=== PATIENT | female | born 1930 | race Caucasian/White ===

== ENCOUNTER 2017-03-01 13:54 | Emergency (ER) | payer OTHER, BC ==
[~2017-03-01] VITALS: Ht 154.9 cm; Wt 59.6 kg
[~2017-03-01 13:54] MED LIST: APRESOLINE25 MG PO; ASPIR-LOW81 MG PO; ATENOLOL100 M1 PO; Atarax PO; CORTISPORIN EAR10 ML TP; FUROSEMIDE20 MG PO; LEVOTHROID88 MCG PO; LEVOTHYROXINE100 MCG PO; LEVOTHYROXINE88 MCG PO; LORAZEPAM0.5 MG PO; MAXZIDE 37.5 M1 EACH PO; NORVASC10 MG PO; PRAVACHOL40 MG PO; SIMVASTATIN40 MG PO; SUTENT25 MG PO; predniSONE PO
[2017-03-01 15:37] VITALS: BP 188/99
== END 2017-03-01 15:37 | disposition home or self-care (01) ==
LOC: EME 13:54
DX: R00.2 Palpitations (principal); I10 Essential (primary) hypertension; E78.5 Hyperlipidemia, unspecified; F41.9 Anxiety disorder, unspecified; Z95.1 Presence of aortocoronary bypass graft; Z85.528 Personal history of other malignant neoplasm of kidney; Z90.5 Acquired absence of kidney
CPT/HCPCS: 93005; 99281; 99283

== ENCOUNTER → 2017-06-01 | Outpatient (CLI) | payer OTHER, BC ==
[~2017-06-01] MED LIST changes: +CLONIDINE HCL0.1 MG PO; +LABETALOL HCL200 MG PO
== END | disposition home or self-care (01) ==
LOC: AMB 12:24
DX: L85.8 Other specified epidermal thickening (principal)
CPT/HCPCS: 88305

== ENCOUNTER 2017-06-19 14:14 | Observation (INO) | payer OTHER, BC ==
[~2017-06-19] VITALS: Ht 154.9 cm; Wt 48.6 kg
[2017-06-19 15:39] LABS: HEMOGLOBIN 12.5 G/DL (11.9-15.5); MCH 31.3 PG (29.0-34.0); MCHC 33.8 G/DL (30.0-36.0); MCV 92.7 FL (83-99); PLATELET COUNT 236 K/uL (156-360); RBC DIS.WIDTH-CV 13.9 % (11.8-14.6); RBC DIS.WIDTH-SD 47.1 % (39-53); RED BLOOD COUNT 3.99 M/uL (3.80-5.20); WHITE BLOOD COUNT 14.1 K/uL (4.1-10.2)
[2017-06-19 15:47] LABS: ALBUMIN 3.8 g/dL (3.2-4.8); CHLORIDE 105 mEq/L (99-109); POTASSIUM 4.8 mEq/L (3.7-5.4); SODIUM 138 mEq/L (136-147)
[2017-06-19 15:50] LABS: GLUCOSE 106 mg/dL (70-99)
[2017-06-19 15:52] LABS: TOTAL BILIRUBIN 0.3 mg/dL (0.0-1.0)
[2017-06-19 15:53] LABS: ALKALINE PHOSPHATASE 78 IU/L (3-129); CREATININE 1.6 mg/dL (0.6-1.3); GFR ESTIMATE (CALCULATED) 32 mL/min/
[2017-06-19 15:54] LABS: UREA NITROGEN (BUN) 36 mg/dL (9-23)
[2017-06-19 15:55] LABS: AST (GOT) 22 IU/L (2-34)
[2017-06-19 15:56] LABS: ALT (GPT) 17 IU/L (3-49)
[2017-06-19] MEDS ORDERED: FUROSEMIDE20 MG PO (19:55)
[2017-06-19] MEDS ORDERED: VITAMIN D2000 UNIT PO (19:56)
[2017-06-19] MEDS ORDERED: LEVO-T75 MCG PO (19:57)
[2017-06-19 22:02] LABS: TROP-I INTERPRETATION NEGATIVE; TROPONIN-I 0.04 ng/mL (0.0-0.30)
[2017-06-19 22:45] VITALS: BP 207/84
[2017-06-20 06:07] LABS: HEMOGLOBIN 11.7 G/DL (11.9-15.5); MCH 30.9 PG (29.0-34.0); MCHC 33.4 G/DL (30.0-36.0); MCV 92.3 FL (83-99); PLATELET COUNT 239 K/uL (156-360); RBC DIS.WIDTH-CV 13.8 % (11.8-14.6); RBC DIS.WIDTH-SD 46.9 % (39-53); RED BLOOD COUNT 3.79 M/uL (3.80-5.20); WHITE BLOOD COUNT 11.1 K/uL (4.1-10.2)
[2017-06-20 06:27] LABS: CHLORIDE 106 MEQ/L (99-109); CREATININE 1.5 MG/DL (0.6-1.3); GFR ESTIMATE (CALCULATED) 35 mL/min/; GLUCOSE 107 mg/dL (70-99); POTASSIUM 4.5 MEQ/L (3.7-5.4); SODIUM 140 MEQ/L (136-147); UREA NITROGEN (BUN) 32 mg/dL (9-23)
[2017-06-20 08:14] VITALS: BP 204/83
[2017-06-20 08:34] LABS: FOLIC ACID (FOLATE) > 22.0 NG/ML (5.0-22.0)
[2017-06-20 08:40] LABS: THYROTROPIN (TSH) 2.4 MIU/L (0.4-5.5)
[2017-06-20 11:00] VITALS: BP 178/73
[2017-06-20] MEDS ORDERED: LIDODERM 5% P1 PATCH TD (12:59)
[2017-06-20] MEDS ORDERED: TYLENOL WITH C1 EACH PO (13:00)
[2017-06-20] MEDS ORDERED: LASIX20 MG/2 ML IM (18:18)
[2017-06-20] MEDS ORDERED: FURO20I IV (18:19)
[2017-06-20] MEDS ORDERED: ZOFRAN4 MG IV (18:20)
[2017-06-20] MEDS ORDERED: HEPARIN SO5000 UNIT4 SC (18:20)
[2017-06-20] MEDS ORDERED: OXYCODONE HCL5 MG PO (18:22)
== END 2017-06-20 14:53 ==
LOC: EME 14:14 → 5WEST 21:02 → EDOF 21:02 → ENRESERV 21:03 → 5WEST 21:56
PROVIDERS: Emergency Medicine; Hospitalist
DX: S22.42XA Multiple fractures of ribs, left side, initial encounter for closed fracture (principal); I16.0 Hypertensive urgency; I11.0 Hypertensive heart disease with heart failure; I50.9 Heart failure, unspecified; D72.829 Elevated white blood cell count, unspecified; Z85.528 Personal history of other malignant neoplasm of kidney; Z85.3 Personal history of malignant neoplasm of breast; Z90.5 Acquired absence of kidney; I25.10 Atherosclerotic heart disease of native coronary artery without angina pectoris; Z95.1 Presence of aortocoronary bypass graft; E78.5 Hyperlipidemia, unspecified; R91.8 Other nonspecific abnormal finding of lung field; Z79.82 Long term (current) use of aspirin; Z82.49 Family history of ischemic heart disease and other diseases of the circulatory system; Z80.3 Family history of malignant neoplasm of breast; Z88.8 Allergy status to other drugs, medicaments and biological substances; W10.8XXA Fall (on) (from) other stairs and steps, initial encounter; Y93.9 Activity, unspecified; Y92.009 Unspecified place in unspecified non-institutional (private) residence as the place of occurrence of the external cause
CPT/HCPCS: 70450; 71250; 80048; 80053; 81003; 82306; 82607; 82746; 84443; 84484; 85027; 85610; 85730; 99281; 99285; G0378; G8978 GP CM; G8979 CJ; G8980 GP CM; G8987 CK; G8988 GO CJ; G8989 GO CK; J0360; J1644; J1940; J1956; J7030

== ENCOUNTER 2017-06-20 15:25 | Inpatient (IN) | payer OTHER, BC ==
[~2017-06-20] VITALS: Ht 154.9 cm; Wt 58.0 kg
[~2017-06-20 15:25] MED LIST changes: +LEVO-T75 MCG PO; +LIDODERM 5% P1 PATCH TD; +TYLENOL WITH C1 EACH PO; +VITAMIN D2000 UNIT PO
[2017-06-20] MEDS ORDERED: LASIX20 MG/2 ML IM (18:18)
[2017-06-20] MEDS ORDERED: FURO20I IV (18:19)
[2017-06-20] MEDS ORDERED: HEPARIN SO5000 UNIT4 SC (18:20)
[2017-06-20] MEDS ORDERED: ZOFRAN4 MG IV (18:20)
[2017-06-20] MEDS ORDERED: OXYCODONE HCL5 MG PO (18:22)
[2017-06-20 18:40] VITALS: BP 194/80
[2017-06-20 19:45] VITALS: BP 158/62
[2017-06-21 00:21] VITALS: BP 117/64
[2017-06-21 04:06] VITALS: BP 132/62
[2017-06-21 05:56] LABS: HEMATOCRIT 33.4 % (36.0-46.0); HEMOGLOBIN 11.3 G/DL (11.9-15.5); MCH 31.1 PG (29.0-34.0); MCHC 33.8 G/DL (30.0-36.0); PLATELET COUNT 230 K/uL (156-360); RBC DIS.WIDTH-SD 47.3 % (39-53); RED BLOOD COUNT 3.63 M/uL (3.80-5.20); WHITE BLOOD COUNT 11.9 K/uL (4.1-10.2)
[2017-06-21 06:09] LABS: ALBUMIN 3.2 G/DL (3.2-4.8); ALKALINE PHOSPHATASE 54 IU/L (3-129); ALT (GPT) 13 IU/L (3-49); AST (GOT) 17 IU/L (2-34); CHLORIDE 101 MEQ/L (99-109); CREATININE 1.9 MG/DL (0.6-1.3); GFR ESTIMATE (CALCULATED) 27 mL/min/; GLUCOSE 102 mg/dL (70-99); POTASSIUM 4.2 MEQ/L (3.7-5.4); SODIUM 136 MEQ/L (136-147); TOTAL BILIRUBIN 0.4 MG/DL (0.0-1.0); TOTAL PROTEIN 5.7 G/DL (6.4-8.3); UREA NITROGEN (BUN) 35 mg/dL (9-23)
[2017-06-21 09:37] LABS: BASOPHIL (%) 0.5 % (0-1); BASOPHIL COUNT 0.1 K/uL (0-0.1); EOSINOPHIL (%) 1.7 % (0-5); EOSINOPHIL COUNT 0.2 K/uL (0-0.3); HEMOGLOBIN 12.3 G/DL (11.9-15.5); IMMATURE GRANULOCYTE (%) 0.3 % (0.0-0.7); LYMPHOCYTE (%) 21.7 % (15-42); LYMPHOCYTE COUNT 2.5 K/uL (1.0-2.8); MCH 31.3 PG (29.0-34.0); MCHC 34.2 G/DL (30.0-36.0); MCV 91.6 FL (83-99); MONOCYTE (%) 9.1 % (3-12); MONOCYTE COUNT 1.1 K/uL (0-0.8); NEUTROPHIL (%) 66.7 % (45-76); NEUTROPHIL COUNT 7.8 K/uL (1.8-6.4); PLATELET COUNT 247 K/uL (156-360); RBC DIS.WIDTH-CV 13.8 % (11.8-14.6); RBC DIS.WIDTH-SD 46.3 % (39-53); RED BLOOD COUNT 3.93 M/uL (3.80-5.20); WHITE BLOOD COUNT 11.7 K/uL (4.1-10.2)
[2017-06-21 09:52] LABS: CHLORIDE 101 mEq/L (99-109); POTASSIUM 4.1 mEq/L (3.7-5.4); SODIUM 136 mEq/L (136-147)
[2017-06-21 09:55] LABS: GLUCOSE 159 mg/dL (70-99)
[2017-06-21 09:57] LABS: CREATININE 1.9 mg/dL (0.6-1.3); GFR ESTIMATE (CALCULATED) 27 mL/min/
[2017-06-21 09:58] LABS: UREA NITROGEN (BUN) 36 mg/dL (9-23)
[2017-06-21 09:58] LABS: TROP-I INTERPRETATION NEGATIVE; TROPONIN-I 0.03 ng/mL (0.0-0.30)
[2017-06-21 14:08] VITALS: BP 159/67
[2017-06-21 14:09] VITALS: BP 156/70
[2017-06-21 14:10] VITALS: BP 136/60
[2017-06-21 14:23] LABS: APPEARANCE CLEAR ((CLEAR)); BILIRUBIN NEGATIVE; BLOOD NEGATIVE; COLOR YELLOW ((YELLOW)); GLUCOSE (STRIP) NEGATIVE; KETONES NEGATIVE; LEUKOCYTES NEGATIVE; NITRITE NEGATIVE; PROTEIN (STRIP) NEGATIVE; SPECIFIC GRAVITY 1.011 (1.000-1.030); UROBILINOGEN 0.2 MG/DL (0.2-1.0)
[2017-06-21 18:21] LABS: TROP-I INTERPRETATION NEGATIVE; TROPONIN-I < 0.01 ng/mL (0.0-0.30)
[2017-06-21 21:41] VITALS: BP 167/74
[2017-06-22 00:14] VITALS: BP 121/58
[2017-06-22 01:04] LABS: TROP-I INTERPRETATION NEGATIVE; TROPONIN-I 0.02 ng/mL (0.0-0.30)
[2017-06-22 05:15] VITALS: BP 130/60
[2017-06-22 06:04] LABS: BASOPHIL (%) 0.4 % (0-1); BASOPHIL COUNT 0.1 K/uL (0-0.1); EOSINOPHIL (%) 2.2 % (0-5); EOSINOPHIL COUNT 0.2 K/uL (0-0.3); HEMATOCRIT 33.8 % (36.0-46.0); HEMOGLOBIN 11.1 G/DL (11.9-15.5); IMMATURE GRANULOCYTE (%) 0.4 % (0.0-0.7); LYMPHOCYTE (%) 25.6 % (15-42); LYMPHOCYTE COUNT 2.9 K/uL (1.0-2.8); MCH 30.2 PG (29.0-34.0); MCHC 32.8 G/DL (30.0-36.0); MCV 92.1 FL (83-99); MONOCYTE (%) 10.2 % (3-12); MONOCYTE COUNT 1.1 K/uL (0-0.8); NEUTROPHIL (%) 61.2 % (45-76); NEUTROPHIL COUNT 6.8 K/uL (1.8-6.4); PLATELET COUNT 242 K/uL (156-360); RBC DIS.WIDTH-SD 46.5 % (39-53); RED BLOOD COUNT 3.67 M/uL (3.80-5.20); WHITE BLOOD COUNT 11.2 K/uL (4.1-10.2)
[2017-06-22 06:28] LABS: CHLORIDE 102 MEQ/L (99-109); CREATININE 2.2 MG/DL (0.6-1.3); GFR ESTIMATE (CALCULATED) 22 mL/min/; GLUCOSE 121 mg/dL (70-99); POTASSIUM 4.8 MEQ/L (3.7-5.4); SODIUM 139 MEQ/L (136-147); UREA NITROGEN (BUN) 41 mg/dL (9-23)
[2017-06-22 16:32] VITALS: BP 165/70
[2017-06-22 23:46] VITALS: BP 147/63
[2017-06-23 05:20] VITALS: BP 142/80
[2017-06-23 05:29] LABS: BASOPHIL (%) 0.7 % (0-1); BASOPHIL COUNT 0.1 K/uL (0-0.1); EOSINOPHIL (%) 2.5 % (0-5); EOSINOPHIL COUNT 0.3 K/uL (0-0.3); HEMATOCRIT 32.4 % (36.0-46.0); HEMOGLOBIN 10.6 G/DL (11.9-15.5); IMMATURE GRANULOCYTE (%) 0.3 % (0.0-0.7); LYMPHOCYTE (%) 29.7 % (15-42); LYMPHOCYTE COUNT 3.2 K/uL (1.0-2.8); MCH 30.1 PG (29.0-34.0); MCHC 32.7 G/DL (30.0-36.0); MONOCYTE (%) 10.4 % (3-12); MONOCYTE COUNT 1.1 K/uL (0-0.8); NEUTROPHIL (%) 56.4 % (45-76); PLATELET COUNT 231 K/uL (156-360); RBC DIS.WIDTH-SD 46.8 % (39-53); RED BLOOD COUNT 3.52 M/uL (3.80-5.20); WHITE BLOOD COUNT 10.7 K/uL (4.1-10.2)
[2017-06-23 06:06] LABS: CHLORIDE 106 MEQ/L (99-109); GFR ESTIMATE (CALCULATED) 30 mL/min/; GLUCOSE 106 mg/dL (70-99); POTASSIUM 4.7 MEQ/L (3.7-5.4); SODIUM 140 MEQ/L (136-147); UREA NITROGEN (BUN) 41 mg/dL (9-23)
[2017-06-23 06:13] LABS: CREATININE 1.7 MG/DL (0.6-1.3)
[2017-06-23 15:55] VITALS: BP 180/72
[2017-06-23 16:36] VITALS: BP 180/75
[2017-06-23 18:00] VITALS: BP 164/62
[2017-06-23 18:23] VITALS: BP 180/60
[2017-06-24 00:03] VITALS: BP 177/74
[2017-06-24 05:51] VITALS: BP 178/92
[2017-06-24 09:45] VITALS: BP 180/72
[2017-06-24 12:23] VITALS: BP 140/68
[2017-06-24 18:20] VITALS: BP 150/54
[2017-06-25 05:23] VITALS: BP 159/71
[2017-06-25 15:45] VITALS: BP 170/74
[2017-06-25 22:29] VITALS: BP 204/85
[2017-06-25 22:44] LABS: BASE EXCESS 4.3 mEq/L (-3 to +3); BICARBONATE 26.7 mEq/L (22-26); CARBOXY HGB 1.3 % (0-5); METHEMOGLOBIN 2.1 % (0-1.5); PCO2 32 mm Hg (35-45); PO2 138 mm Hg (80-100); pH 7.53 (7.35-7.45)
[2017-06-25 22:45] LABS: COMMENTS - BLOOD GASES A+C+; DEVICE NC; O2 FLOW 4 L/MIN; SITE LR
[2017-06-25 22:45] LABS: HEMATOCRIT 34.7 % (36.0-46.0); HEMOGLOBIN 11.9 G/DL (11.9-15.5); MCH 31.2 PG (29.0-34.0); MCHC 34.3 G/DL (30.0-36.0); MCV 91.1 FL (83-99); PLATELET COUNT 256 K/uL (156-360); RBC DIS.WIDTH-CV 14.4 % (11.8-14.6); RED BLOOD COUNT 3.81 M/uL (3.80-5.20)
[2017-06-25 23:01] LABS: CHLORIDE 104 mEq/L (99-109); POTASSIUM 4.7 mEq/L (3.7-5.4); SODIUM 138 mEq/L (136-147)
[2017-06-25 23:03] LABS: GLUCOSE 152 mg/dL (70-99)
[2017-06-25 23:07] LABS: GFR ESTIMATE (CALCULATED) 25 mL/min/
[2017-06-25 23:08] LABS: TROP-I INTERPRETATION NEGATIVE; TROPONIN-I 0.02 ng/mL (0.0-0.30); UREA NITROGEN (BUN) 48 mg/dL (9-23)
[2017-06-25 23:10] VITALS: BP 162/56
[2017-06-26 05:31] VITALS: BP 152/67
[2017-06-26 15:26] VITALS: BP 158/68
[2017-06-27 00:36] VITALS: BP 139/64
[2017-06-27 05:22] VITALS: BP 117/58
[2017-06-27 06:18] VITALS: BP 153/68
[2017-06-27 12:00] VITALS: BP 121/58
[2017-06-27 15:48] VITALS: BP 108/53
[2017-06-27 23:49] VITALS: BP 139/63
[2017-06-28 05:55] VITALS: BP 141/70
[2017-06-28] MEDS ORDERED: APRESOLINE25 MG PO (12:55)
[2017-06-28] MEDS ORDERED: SENNA PLUS TAB1 EACH PO (12:55)
[2017-06-28] MEDS ORDERED: LABETALOL HCL200 MG PO (12:55)
== END 2017-06-28 14:15 | disposition home health service (06) | DRG 200 ==
LOC: 3WEST 15:25 → ENPENDDIS 06-28 → 3WEST 06-28 14:15
PROVIDERS: Hospitalist; Internal Medicine; Internal Medicine Nephrology; Physical Medicine & Rehabilitation Pain Medicine
PROC: F07M7ZZ Manual Therapy Techniques Treatment of Musculoskeletal System - Whole Body (ICD-10-PCS; principal; 2017-06-20)
DX: S27.0XXA Traumatic pneumothorax, initial encounter (principal); S22.42XA Multiple fractures of ribs, left side, initial encounter for closed fracture; C79.00 Secondary malignant neoplasm of unspecified kidney and renal pelvis; C50.919 Malignant neoplasm of unspecified site of unspecified female breast; W01.198A Fall on same level from slipping, tripping and stumbling with subsequent striking against other object, initial encounter; W10.9XXA Fall (on) (from) unspecified stairs and steps, initial encounter; I27.20 Pulmonary hypertension, unspecified; I34.0 Nonrheumatic mitral (valve) insufficiency; I13.0 Hypertensive heart and chronic kidney disease with heart failure and stage 1 through stage 4 chronic kidney disease, or unspecified chronic kidney disease; R26.9 Unspecified abnormalities of gait and mobility; E78.5 Hyperlipidemia, unspecified; D64.9 Anemia, unspecified; I25.10 Atherosclerotic heart disease of native coronary artery without angina pectoris; Z85.528 Personal history of other malignant neoplasm of kidney; Z90.5 Acquired absence of kidney; Z90.710 Acquired absence of both cervix and uterus; Z95.1 Presence of aortocoronary bypass graft; Z90.10 Acquired absence of unspecified breast and nipple; Z85.3 Personal history of malignant neoplasm of breast; Z82.49 Family history of ischemic heart disease and other diseases of the circulatory system; Z80.3 Family history of malignant neoplasm of breast; Z79.82 Long term (current) use of aspirin; I08.1 Rheumatic disorders of both mitral and tricuspid valves; N17.9 Acute kidney failure, unspecified; N18.3 Chronic kidney disease, stage 3 (moderate); I50.9 Heart failure, unspecified; I44.0 Atrioventricular block, first degree; I65.23 Occlusion and stenosis of bilateral carotid arteries; K59.00 Constipation, unspecified; J98.11 Atelectasis; D72.829 Elevated white blood cell count, unspecified; E89.0 Postprocedural hypothyroidism; F41.9 Anxiety disorder, unspecified; I73.9 Peripheral vascular disease, unspecified; R09.02 Hypoxemia
CPT/HCPCS: 36600; 70450; 71045; 71046; 73110; 76770; 80048; 80048 91; 80053; 81003; 82803; 82948; 84439; 84443; 84484; 85025; 85027; 93005; 93306; 93880; 93970; 95819; 97110 GO; 97530 GP; J1644; J7030; J7512

== ENCOUNTER 2018-02-05 16:47 | Emergency (ER) | payer OTHER, BC ==
[~2018-02-05] VITALS: Ht 154.9 cm; Wt 59.1 kg
[~2018-02-05 16:47] MED LIST changes: +FURO20I IV; +HEPARIN SO5000 UNIT4 SC; +LASIX20 MG/2 ML IM; +OXYCODONE HCL5 MG PO; +SENNA PLUS TAB1 EACH PO; +ZOFRAN4 MG IV
[2018-02-05 17:53] VITALS: BP 233/83
== END 2018-02-05 17:54 | disposition home or self-care (01) ==
LOC: EME 16:47
DX: I10 Essential (primary) hypertension (principal); E78.5 Hyperlipidemia, unspecified; F41.9 Anxiety disorder, unspecified; Z95.1 Presence of aortocoronary bypass graft; Z88.8 Allergy status to other drugs, medicaments and biological substances
CPT/HCPCS: 99281; 99283